=== PATIENT | female | born 1970 | race Caucasian/White ===

== ENCOUNTER 2017-01-28 12:48 | Emergency (ER) | payer MEDICARE, OTHER ==
--- NOTE | ~2017-01-28 | CR195 ---
[facility] A Service of [facility] RADIOLOGY TEXT RESULTS PATIENT: SHASHI PAUL LOCATION: SED : 74 UNIT #: [id number] AGE: [address]: Isaak Thomas MD SEX: F ORDER DR: [id number] [address] [address] [id number] MR#: [id number] #: [id number] NAME: SHASHI PAUL : 1970 SEX: F STUDY DATE/TIME: 01/28/2017 13:13 UNIT: SED ROOM: STUDY DESCRIPTION: Neck Soft Tissue Attending Physician: Isaak Thomas M.D. Ordering Physician: Isaak Thomas M.D. Primary Care Physician: Teja Helm M.D. MEDICAL IMAGING REPORT This report is preliminary unless electronic signature is present. EXAM Neck soft tissue series, 01/28/17 HISTORY Pain. Short of air. Throat swelling began Saturday. C5-6 fusion. Thyroidectomy. No known injury. FINDINGS AP and lateral views of the neck with soft tissue detail are presented. COMPARISON: 05/12/14 Multiple surgical clips bilaterally from prior thyroidectomy. No acute appearing soft tissue abnormality. The prevertebral soft tissues appear of normal and stable width. The epiglottis and aryepiglottic folds are unremarkable in appearance. No nonsurgical subcutaneous radiodense foreign body and no subcutaneous air. There is bony fusion across the C5-C6 intervertebral disc space unchanged. No acute appearing bony abnormality. Visualized upper thorax unremarkable. The visualized facial bones appear intact. . Dictated by... Yayo Tejada M.D. THIS IS AN ELECTRONICALLY VERIFIED REPORT Yayo Tejada M.D. at 01/29/2017 9:09 AM PANCHO/cristela TD: 01/28/2017 14:29 [facility] A Service of [facility] RADIOLOGY TEXT RESULTS PATIENT: SHASHI PAUL LOCATION: SED : 74 UNIT #: [id number] AGE: [address]: Isaak Thomas MD SEX: F ORDER DR: JOB #: [id number] MEDICAL IMAGING REPORT Page 1 of 1
[~2017-01-28 12:48] MED LIST: ACID REDUCER75 M1 PO; ALPRAZOLAM; ALPRAZOLAM PO; AMBIEN PO; AMITRYPTYLINE PO; AMOXICILLIN PO; AMOXICILLIN500 M1 PO; AMOXIL500 MG PO; ANTIVERT PO; ATIVAN PO; AUGMENTIN PO; AURALGAN EAR DR14 ML OT; BACLOFEN; BACLOFEN10 MG PO; BACTRIM DS TABL1 TA1; CELEXA PO; CHANTIX PO; CIPRO PO; CLARITIN10 MG PO; CLEOCIN HCL300 M1 PO; CLINDAMYCIN HC300 MG PO; CODEINE; COMPAZINE10 MG PR; DICLOFENAC; DICLOFENAC PO; DIFLUCAN PO; EC-NAPROSYN500 MG PO; ENABLEX15 MG PO; FLAGYL PO; FLOMAX0.4 MG PO; FLONASE16 GM; GELNIQUE TOP; GEODAN PO; GUAIFENESIN; HYCODAN PO; HYTRIN PO; IBUPROFEN PO; K-LOR HOSPITAL20 ME1 PO; KEFLEX500 MG PO; LEVAQUIN PO; LORTAB 10/500 T1 TAB; LORTAB 10/500 T1 TAB PO; LORTAB 7.5-5001 TAB PO; LYRICA PO; LYRICA100 MG PO; MAGIC MOUTHWASH; MECLIZINE HCL12.5 MG PO; MORPHINE SULFAT15 M1 PO; MS CONTIN15 MG PO; MUCINEX DM1 TAB.SR . PO; NEURONTIN100 MG; NILSTAT PO; OMEPRAZOLE20 M2 PO; OXYCODONE15 MG PO; PHENERGAN PO; PHENERGAN25 M1 PO; PHENERGAN25 MG PO; PROZAC; PROZAC PO; REGLAN; RISEDRONATE SOD35 MG; RISPERIDONE; RISPERIDONE OD0.5 MG; RISPERIDONE PO; ROXICET PO; ROXICODONE5 M1 PO; SEROQUEL PO; SYNTHROID; SYNTHROID PO; SYNTHROID0.05 MG; SYNTHROID0.1 MG PO; SYNTHROID125 PO; TEMAZEPAM PO; TUSSIONEX PENN473 ML PO; TYLOX 5/500 CAP1 CAP PO; UROXATRAL10 MG PO; VICODIN 5/1 TAB 5/50 PO; XANAX0.5 M1; XANAX1 MG PO; XANAX2 MG PO; ZANAFLEX2 M1; ZITHROMAX PO; ZOFRAN ODT4 MG SL; ZOFRAN ODT4 MG/UDTAB PO; ZOFRAN PO; [UNRECOGNIZED DRUG - OTHER]; [UNRECOGNIZED DRUG - OTHER] PO; [UNRECOGNIZED DRUG - OTHER] TOP
[2017-01-28 13:15] LABS: MICRO INDICATED? NO; URINE APPEARANCE CLEAR; URINE BILIRUBIN NEG (NEG); URINE BLOOD NEG (NEG); URINE COLOR YELLOW; URINE GLUCOSE NEG (NORM); URINE KETONE NEG (NEG); URINE LEUKOCYTE ESTERASE NEG (NEG); URINE NITRATE NEG (NEG); URINE PROTEIN NEG (NEG); URINE SOURCE CLEAN CATCH; URINE SPECIFIC GRAVITY 1.015 (1.003-1.035); URINE UROBILINOGEN 0.2 MG/DL (NORM)
[2017-01-28 13:26] LABS: AMPHETAMINE NEG (NEG); BARBITURATES NEG (NEG); BENZODIAZEPINES NEG (NEG); COCAINE NEG (NEG); MARIJUANA NEG (NEG); OPIATES NEG (NEG); TRICYCLIC ANTIDEPRESSANTS NEG (NEG); U METHADONE NEG (NEG)
== END 2017-01-28 14:51 | disposition home or self-care (01) ==
LOC: SED 12:48
PROVIDERS: Emergency Medicine
DX: J02.9 Acute pharyngitis, unspecified (principal); F31.9 Bipolar disorder, unspecified; M79.7 Fibromyalgia; F17.200 Nicotine dependence, unspecified, uncomplicated; Z90.710 Acquired absence of both cervix and uterus; Z90.49 Acquired absence of other specified parts of digestive tract; Z98.890 Other specified postprocedural states
CPT/HCPCS: 70360; 80307; 81003; 87651; 99283